=== PATIENT | male | born 1945 | race Caucasian/White ===

== ENCOUNTER 2023-09-18 09:11 | Emergency (ER) | payer MEDICARE, OTHER ==
[2023-09-18] MEDS: Acetaminophen/HYDROcodone 325-5 MG Tab PO ONE ×2 (11:28→13:51)
[2023-09-18] MEDS ORDERED: Acetaminophen/HYDROcodone 325-5 MG Tab ONE (13:47)
[2023-09-18] MEDS: Ketorolac 60 MG/2 ML SDV ONE (13:50)
[2023-09-18] MEDS: Ketorolac 60 MG/2 ML SDV IM ONE (13:51)
[2023-09-18] MEDS: Ondansetron 4 MG Tab.DIS PO ONE (13:51)
[2023-09-18] MEDS: Ondansetron 4 MG Tab.DIS ONE (13:51)
== END 2023-09-18 14:30 ==
LOC: LB.ED 09:11
DX: S72.001A Fracture of unspecified part of neck of right femur, initial encounter for closed fracture (principal); I10 Essential (primary) hypertension; Z79.899 Other long term (current) drug therapy; Z20.822 Contact with and (suspected) exposure to COVID-19; W17.89XA Other fall from one level to another, initial encounter
CPT/HCPCS: 73502-RT; 99284; A0425; A0429; A9270-GY; Q0162; U0002